=== PATIENT | male | born 1990 | race African-American/Black ===

== ENCOUNTER 2018-01-07 00:54 | Emergency (ER) | payer OTHER ==
[~2018-01-07] VITALS: Ht 182.9 cm; Wt 68.0 kg
[2018-01-07 01:06] VITALS: BP 129/71; PULSE 88; RESP 16; TEMP 98.8; O2SAT 100
--- NOTE | 2018-01-07 01:48 | PD ---
HPI Chief Complaint: Psychiatric Symptoms Time Seen by Provider: 01:37 Travel History International Travel<30 days: No Contact w/Intl Traveler<30days: No Traveled to known affect area: No History of Present Illness HPI 27-year-old male presents as a transfer from [facility] for psychiatric evaluation. he was placed under a Willard act by [facility]'s office on January 06. According to his paperwork the patient was found after he ran away from his senior care and he reportedly was considering hurting himself. He was found to have superficial cuts on his left arm. He was medically cleared at [facility] prior to transfer here for psychiatric evaluation. He admits to running away from his senior care and previously having some thoughts of self-harm but none currently. He reports that he cut his left arm with a stick 2 days ago. He has no medical complaints at this time. [facility] Social History Alcohol Use: No Tobacco Use: No Substance Use: No Allergies-Medications (Allergen,Severity, Reaction): Coded Allergies: No Known Allergies (Verified Allergy, Severe, 11/12/05) Review of Systems Except as stated in HPI: all other systems reviewed are Neg Physical Exam Narrative GENERAL: Well-developed well-nourished male in no acute distress SKIN: Warm and dry. HEAD: Atraumatic. Normocephalic. EYES: Pupils equal and round. No scleral icterus. No injection or drainage. ENT: No nasal bleeding or discharge. Mucous membranes pink and moist. NECK: Trachea midline. No JVD. CARDIOVASCULAR: Regular rate and rhythm. No murmur appreciated. RESPIRATORY: No accessory muscle use. Clear to auscultation. Breath sounds equal bilaterally. MUSCULOSKELETAL: No obvious deformities. No clubbing. No cyanosis. No edema. NEUROLOGICAL: Awake and alert. No obvious cranial nerve deficits. Motor grossly within normal limits. Normal speech. PSYCHIATRIC: Appropriate mood and affect; limited intellectual capacity Data Data Last Documented VS Vital Signs Date Time Temp Pulse Resp B/P (MAP) Pulse Ox O2 Delivery O2 Flow Rate FiO2 01/07/18 01:06 98.8 88 16 129/71 (90) 100 Room Air MDM Medical Decision Making Medical Screen Exam Complete: Yes Emergency Medical Condition: Yes Medical Record Reviewed: Yes Differential Diagnosis Developmental delay, acute psychosis, intermittent explosive disorder, adjustment reaction, major depressive disorder, substance-induced mood disorder Narrative Course 27-year-old male presents as a transfer for psychiatric evaluation. He was medically cleared at [facility]. Mental health screening discussed with the patient. Psychiatric screen ordered. Diagnosis Primary Impression: Medical clearance for psychiatric admission Jabier Hansen Jan 07, 2018 01:48
[2018-01-07 06:47] VITALS: BP 130/62; PULSE 91; RESP 18; TEMP 99.3; O2SAT 99
--- NOTE | 2018-01-07 08:25 | PD ---
Physical Exam Date Seen by Provider: Jan 07, 2018 Time Seen by Provider: 08:24 Narrative 27-year-old male with history of MR, brought here after being evaluated at [facility] for medical clearance for Willard act after running away from his [facility] and stating suicidal ideation. Patient was medically cleared here, and seen by Dr. Randle, our psychiatrist, and deemed psychiatrically stable for transfer back to his [facility]. Follow-up will be based on psychiatric note. Patient remains medically stable at time of discharge. Data Data Last Documented VS Vital Signs Date Time Temp Pulse Resp B/P (MAP) Pulse Ox O2 Delivery O2 Flow Rate FiO2 01/07/18 06:47 99.3 91 18 130/62 (84) 99 Room Air Orders Orders Diet Regular Basic (01/07/18 Breakfast) MDM Medical Record Reviewed: Yes Supervised Visit with DANA: Yes Narrative Course 27-year-old male with history of MR, brought here after being evaluated at [facility] for medical clearance for Willard act after running away from his [facility] and stating suicidal ideation. Patient was medically cleared here, and seen by Dr. Randle, our psychiatrist, and deemed psychiatrically stable for transfer back to his [facility]. Follow-up will be based on psychiatric note. Patient remains medically stable at time of discharge. Diagnosis Primary Impression: Medical clearance for psychiatric admission Patient Instructions: General Instructions Disposition: 70 TRANSFER TO OTHER FACILITY Condition: Stable Jonny Matthew Jan 07, 2018 08:24
--- NOTE | 2018-01-07 10:31 | PD.PSY.CON ---
Provisional Diagnosis Admission Date Virgil I. Adjustment disorder with disturbance of conduct, poor impulse control, Virgil II. 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 Seizures History of Present Illness Service Psychiatry Consult Requested By ER Reason for Consult Suicidal ideation Primary Care Physician Unknown HPI The patient was seen this morning at 7 AM The patient is 27-year-old -[place] man, domiciled in a residential facility in [place], single, unemployed, supported by [facility], with psychiatric history of intellectual disability, poor impulse control, multiple psychiatric admissions, he was admitted once here in [place], documentation reviewed, medical history of seizures, who presents as a transfer from [facility] for psychiatric evaluation. he was placed under a Willard act by [facility]'s office on January 06. According to his paperwork the patient was found after he ran away from his [facility] and he reportedly was considering hurting himself. He was found to have superficial cuts on his left arm. He was medically cleared at [facility] prior to transfer here for psychiatric evaluation. On psychiatric evaluation today the patient admits to running away from his [facility] and previously having some thoughts of self- harm but none currently. He reports that he cut his left arm with a stick 2 days ago "but I did not want to ". Lacerations in his left ribs are very superficial. At this moment the patient reports very good mood, he states that he has a girlfriend and he was to her. He is definitely future oriented , denies suicidal enemas ideation, he denies visual and auditory hallucinations. Patient would not elaborate about the reason of his elopement from [facility]. He does report that he wants to go back. During his stay in the ER, no agitation, no aggressive behavior, no paranoia or disorganization noted. Patient denies the use of illegal drugs or alcohol Review of Systems Constitutional: DENIES: Diaphoretic episodes, Fatigue, Fever, Weight gain, Weight loss, Chills, Dizziness, Change in appetite, Night Sweats Endocrine: DENIES: Heat/cold intolerance, Polydipsia, Polyuria, Polyphagia Eyes: DENIES: Blurred vision, Diplopia, Eye inflammation, Eye pain, Vision loss , Photosensitivity, Double Vision Ears, nose, mouth, throat: DENIES: Tinnitus, Hearing loss, Vertigo, Nasal discharge, Oral lesions, Throat pain, Hoarseness, Ear Pain, Running Nose, Epistaxis, Sinus Pain, Toothache, Odynophagia Respiratory: DENIES: Apneas, Cough, Snoring, Wheezing, Hemoptysis, Sputum production, Shortness of breath Cardiovascular: DENIES: Chest pain, Palpitations, Syncope, Dyspnea on Exertion , PND, Lower Extremity Edema, Orthopnea, Claudication Gastrointestinal: DENIES: Abdominal pain, Black stools, Bloody stools, Constipation, Diarrhea, Nausea, Vomiting, Difficulty Swallowing, Anorexia Genitourinary: DENIES: Sexual dysfunction, Urinary frequency, Urinary incontinence, Urgency, Hematuria, Dysuria, Nocturia, Penile Discharge, Testicular Pain, Testicular Swelling Musculoskeletal: DENIES: Joint pain, Muscle aches, Stiffness, Joint Swelling, Back pain, Neck pain Integumentary: DENIES: Abnormal pigmentation, Nail changes, Pruritus, Rash Hematologic/lymphatic: DENIES: Bruising, Lymphadenopathy Immunologic/allergic: DENIES: Eczema, Urticaria Neurologic: DENIES: Abnormal gait, Headache, Localized weakness, Paresthesias, Seizures, Speech Problems, Tremor, Poor Balance Psychiatric: DENIES: Anxiety, Confusion, Mood changes, Depression, Hallucinations, Agitation, Suicidal Ideation, Homicidal Ideation, Delusions Past Family Social History Coded Allergies: No Known Allergies (Verified Allergy, Severe, 11/12/05) Family Psych History No family psychiatric history Social History Patient was born and raised in [place], he lives in a fpc in [place] , unemployed, single, supported by [facility] Patient's Strengths (min. 2) He lives in a structure environment Physical Exam Vital Signs Vital Signs Date Time Temp Pulse Resp B/P (MAP) Pulse Ox O2 Delivery O2 Flow Rate FiO2 01/07/18 06:47 99.3 91 18 130/62 (84) 99 Room Air Mental Status Examination Appearance: Appropriate Consciousness: Alert Orientation: x4 Motor Activity: Normal gait Speech: Unremarkable Language: Adequate Fund of Knowledge: Adequate Attention and Concentration: Adequate Memory: Unremarkable Mood: Appropriate Affect: Appropriate Thought Process & Associations: Intact Thought Content: Appropriate Hallucination Type: None Delusion Type: None Suicidal Ideation: No Suicidal Plan: No Suicidal Intention: No Homicidal Ideation: No Homicidal Plan: No Homicidal Intention: No Insight: Adequate Judgment: Adequate Assessment & Plan Problem List: (1) Adjustment disorder with disturbance of conduct ICD Codes: F43.24 - Adjustment disorder with disturbance of conduct Assessment & Plan: On psychiatric evaluation today the patient does not present any neuropsychiatric symptoms that require any immediate psychiatric intervention. The patient denies depressive symptoms, denies anxiety, denies isaias and psychosis. He denies suicidal and homicidal ideation, he denies visual and auditory hallucinations at this moment. There is a patient with an extensive significant history of mild to moderate intellectual disability, poor impulse control, multiple psychiatric hospitalizations, living in a structured environment. Recent elopement from fpc and endorsed suicidal ideation are related with his poor coping skills, poor impulse control is secondary to his mental limitations. He does not meet criteria for involuntary psychiatric admission at this moment. Patient will be transported back to his f[facility]. Assessment & Plan Estimated LOS: Augustus Beach MD Jan 07, 2018 10:31
== END 2018-01-07 15:08 | disposition home or self-care (01) ==
LOC: NEPJ 00:54
DX: F43.24 Adjustment disorder with disturbance of conduct (principal)
CPT/HCPCS: 99285